=== PATIENT | female | born 1980 | race Caucasian/White ===

== ENCOUNTER 2018-05-11 18:02 | Emergency (ER) | payer BC ==
[~2018-05-11] VITALS: Ht 162.6 cm; Wt 59.0 kg
[2018-05-11 18:30] VITALS: BP_SYST 116
[2018-05-11] MEDS ORDERED: IBUPROFEN 800 MG TABLET PO ONE (21:45)
[2018-05-11 22:05] VITALS: BP_SYST 120
== END 2018-05-11 22:05 | disposition home or self-care (01) ==
LOC: SED 18:02
DX: S82.52XA Displaced fracture of medial malleolus of left tibia, initial encounter for closed fracture (principal); F41.9 Anxiety disorder, unspecified; F32.9 Major depressive disorder, single episode, unspecified; Z88.2 Allergy status to sulfonamides; X50.3XXA Overexertion from repetitive movements, initial encounter; Y93.02 Activity, running; Y92.89 Other specified places as the place of occurrence of the external cause; Y99.8 Other external cause status
CPT/HCPCS: 99283